=== PATIENT | female | born 1990 | race Caucasian/White ===

== ENCOUNTER → 2025-08-30 10:51 | Outpatient (CLI) | payer BC, SELFPAY ==
[2025-08-30 11:23] LABS: Add Manual Diff / Slide Review NO; Hematocrit 41.9 % (36-46); Hemoglobin 14.2 g/dL (12.0-16.0); Lymphocytes Absolute Auto 2100 /uL (1100-4500); Mean Corpuscular HGB Conc 34.0 % (30-36); Mean Corpuscular Hemoglobin 29.5 PG (26-34); Mean Corpuscular Volume 86.8 fL (80-100); Platelet Count 320 X10^3/uL (150-400)
[2025-08-30 11:58] LABS: HEMOLYSIS < 15 (0-50); Iron 118 ug/dL (37-170)
[2025-08-30 12:10] LABS: Percent Iron Saturation 39 % (15-50); Total Iron Binding Capacity 301 ug/dL (265-497); Transferrin 254 mg/dL (206-381)
[2025-08-30 12:16] LABS: Free T4, Direct Thyroxine 0.99 ng/dL (0.78-2.19)
[2025-08-30 12:30] LABS: Thyroid Stimulating Hormone 4.02 uIU/mL (0.47-4.68)
== END ==
PROVIDERS: Referring Provider Obstetrics & Gynecology; Visit Provider Obstetrics & Gynecology
DX: N92.6 Irregular menstruation, unspecified (principal); R53.83 Other fatigue
CPT/HCPCS: 36415; 83540; 83550; 84439; 84443; 85025